=== PATIENT | male | born 1980 | race Caucasian/White ===

== ENCOUNTER 2019-08-28 14:27 | Emergency (ER) | payer OTHER ==
[~2019-08-28] VITALS: Ht 188 cm; Wt 106.6 kg
[~2019-08-28 14:27] MED LIST: NOHOMEMEDICATIONS
[2019-08-28] MEDS ORDERED: OMEPRAZOLE40 MG PO (14:37)
[2019-08-28] MEDS ORDERED: CARVEDILOL12.5 MG PO (14:38)
[2019-08-28] MEDS ORDERED: COZAAR 25 MG TA25 M1 PO (14:38)
[2019-08-28] MEDS ORDERED: HYDROCHLOROTHIA25 M2 PO (14:38)
[2019-08-28 14:58] LABS: ABSOLUTE BASOPHILS 0.1 thou/uL (0.0-0.2); ABSOLUTE EOSINOPHILS 0.1 thou/uL (0.0-0.7); ABSOLUTE LYMPHOCYTES 1.5 thou/uL (0.8-5.3); ABSOLUTE MONOCYTES 0.5 thou/uL (0.0-1.2); ABSOLUTE NEUTROPHILS 4.7 thou/uL (1.6-8.1); BASOPHILS 1.1 %; EOSINOPHILS 1.4 %; HEMATOCRIT 40.5 % (42.0-52.0); LYMPHOCYTES 21.4 %; MCH 29.7 pg (26.0-34.0); MCHC 34.7 g/dL (28.0-37.0); MCV 85.6 fL (80.0-100.0); MONOCYTES 7.7 %; MPV 8.8 fl. (7.2-11.1); NUCLEATED RBCS 0 /100WBC; PLATELET COUNT* 176 thou/uL (150-400); POLYS 68.4 %; RBC 4.73 mil/uL (4.50-6.00); RDW-CV 14.3 % (10.5-14.5); WBC 6.8 thou/uL (4.0-11.0)
[2019-08-28 15:04] LABS: CALCIUM 8.7 mg/dL (8.5-10.1); CREATININE 1.2 mg/dL (0.6-1.3); POTASSIUM 3.9 mmol/L (3.5-5.1)
[2019-08-28 15:06] LABS: APTT 23.1 Seconds (25.0-31.3); PROTIME 10.1 Seconds (9.20-11.50)
[2019-08-28 15:09] LABS: ALBUMIN 4.3 g/dL (3.4-5.0); TOTAL BILIRUBIN 0.7 mg/dL (<0.1-1.0); TOTAL PROTEIN 7.4 g/dL (6.4-8.2)
[2019-08-28] MEDS ORDERED: ANUSOL-HC25 MG RECTAL (16:25)
[2019-08-28 16:39] VITALS: BP 141/87
--- NOTE | 2019-09-02 14:59 | EKG ---
[place] [address] ELECTROCARDIOGRAM REPORT Name: JOSE CARLOS WARREN Marlen Room: [facility]#: [id number] Admission: 08/28/19 Attend Phys: Discharge: 08/28/19 Date of : 80 Date of Service: 08/28/19 1459 Report #: [id number] THIS REPORT FOR: //name// [facility] ED Test Date: 2019-08-28 Test Time: 14:59:21 Pat Name: JOSE CARLOS WARREN Department: Room: Gender: Abstract Checker: : 1980 Requested By: Aye Evans Order Number: [id number] MD: Nithin Pompa Measurements Intervals [place] Rate: 82 P: 29 LA: 146 QRS: 26 QRSD: 85 T: 49 QT: 372 QTc: 435 Interpretive Statements Sinus rhythm Baseline wander in lead(s) V5 Compared to ECG 07/07/2015 03:18:45 Sinus tachycardia no longer present Electronically Signed On 08-29-2019 10:28:06 SPRIGGER by Nithin Pompa [email or web address] <ELECTRONICALLY SIGNED> By: Nithin Pompa MD, [facility] 08/29/19 1028 1459 1459 Nithin Pompa MD, [facility] /EPI
== END 2019-08-28 16:40 | disposition home or self-care (01) ==
LOC: M.ERS 14:27
PROVIDERS: Physician Assistant
DX: K62.89 Other specified diseases of anus and rectum (principal); R55 Syncope and collapse; I10 Essential (primary) hypertension; K21.9 Gastro-esophageal reflux disease without esophagitis; F17.210 Nicotine dependence, cigarettes, uncomplicated; Z88.2 Allergy status to sulfonamides